=== PATIENT | female | born 1945 | race Caucasian/White ===

== ENCOUNTER 2016-06-14 22:08 | Emergency (ER) | payer OTHER ==
[2016-06-14 22:25] VITALS: TEMP 97.9
--- NOTE | 2016-06-14 22:27 | EDPHY ---
H & P HPI/ROS: HPI The patient presents with bilateral leg weakness which began about an hour prior to presentation, lasted for about 20 seconds and now is completely resolved. The patient was at a constitution party and had 5 alcoholic drinks tonight she then developed weakness in both of her legs with a sensation that they might give out on her. She stumbled and fell and her caught her. She did not hit her head. She has no prior history of similar. She denies any numbness or tingling of her legs. She denies any symptoms in her arms or any facial droop. She now denies any complaints though still feels somewhat intoxicated in usually does not drink this much. REVIEW OF SYSTEMS Constitutional: No fever, no chills. Eyes: No discharge. ENT: No sore throat. Cardiovascular: No chest pain, no palpitations. Respiratory: No cough, no shortness of breath. Gastrointestinal: No abdominal pain, no vomiting. Genitourinary: No hematuria. Musculoskeletal: No back pain. Skin: No rashes. Neurological: No headache. 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 PHYSICAL General Appearance: Alert, no distress Eyes: Pupils equal and round no pallor or injection ENT, Mouth: Mucous membranes moist Respiratory: There are no retractions, lungs are clear to auscultation Cardiovascular: Regular rate and rhythm Gastrointestinal: Abdomen is soft and non-tender, no masses, bowel sounds normal Neurological: A&O, cranial nerves 2-12 intact, 5/5 strength in upper and lower extremities which is symmetric, sensation intact to light touch Skin: Warm and dry, no rashes Musculoskeletal: Neck is supple non tender Extremities: symmetrical, full range of motion Psychiatric: Patient is oriented X 3, there is no agitation Source: Patient, EMS Constitutional: Initial Vital Signs Temperature (C) 36.6 C 06/14/16 22:23 Heart Rate 80 06/14/16 22:23 Respiratory Rate 14 06/14/16 22:23 Blood Pressure 179/78 H 06/14/16 22:23 O2 Sat (%) 94 06/14/16 22:23 O2 Delivery Mode Room Air Allergies/Adverse Reactions: Penicillins Allergy (Verified 06/14/16 22:22) Medical Decision Making - Diagnostics EKG Interpretation: EKG: Complete interpretation has been separately recorded in the [facility] archive. Summary impression: Normal sinus rhythm Imaging: CT brain is normal, discussed with Dr. Freitas of Radiology. ED Course/Re-evaluation: 10:15 p.m.- I met the paramedics at the bedside to obtain report. Her symptoms now have completely resolved. Plan for basic labs and CT scan of head. 11:30 p.m.- The patient has had no recurrence of her symptoms and feels well. Labs and CT scan are both unremarkable. I feel her symptoms were mostly related alcohol intoxication and I have explained this to her. I did tell her that she needs to return to the emergency room if she develops any recurrence of the symptoms. She is in agreement with this plan. Differential Diagnosis: This is a 71-year-old female with hyperlipidemia, hypothyroidism who presents with lower extremity weakness which was transient and now resolved, bilateral. She had no other symptoms with this. This is in the setting of heavy alcohol use. Differential diagnosis includes CVA, TIA, alcohol intoxication, electrolyte disturbance. - Data Points Laboratory Results: Laboratory Results 06/14/16 22:14 06/14/16 22:14 06/14/16 06/14/16 22:40 22:14 WBC 9.69 H 10^3/uL (3.80-9.50) RBC 5.16 10^6/uL (4.18-5.33) Hgb 15.6 g/dL (12.6-16.3) Hct 46.5 % (38.0-47.0) MCV 90.1 fL (81.5-99.8) MCH 30.2 pg (27.9-34.1) MCHC 33.5 g/dL (32.4-36.7) RDW 12.9 % (11.5-15.2) Plt Count 207 10^3/uL (150-400) MPV 11.7 fL (8.7-11.7) Neut % (Auto) 48.7 % (39.3-74.2) Lymph % (Auto) 35.4 % (15.0-45.0) [place] % (Auto) 10.9 % (4.5-13.0) Eos % (Auto) 3.4 % (0.6-7.6) Baso % (Auto) 1.1 % (0.3-1.7) Nucleat RBC Rel Count 0.0 % (0.0-0.2) Absolute Neuts (auto) 4.71 10^3/uL (1.70-6.50) Absolute Lymphs (auto) 3.43 H 10^3/uL (1.00-3.00) Absolute Monos (auto) 1.06 H 10^3/uL (0.30-0.80) Absolute Eos (auto) 0.33 10^3/uL (0.03-0.40) Absolute Basos (auto) 0.11 H 10^3/uL (0.02-0.10) Absolute Nucleated RBC 0.00 10^3/uL (0-0.01) Immature Gran % 0.5 % (0.0-1.1) Immature Gran # 0.05 10^3/uL (0.00-0.10) Sodium 145 H mEq/L (134-144) Potassium 3.7 mEq/L (3.5-5.2) Chloride 108 mEq/L (97-110) Carbon Dioxide 22 mEq/l (22-31) Anion Gap 15 mEq/L (8-16) BUN 17 mg/dL (7-23) Creatinine 0.8 mg/dL (0.6-1.0) Estimated GFR > 60 Glucose 101 H mg/dL (70-100) Calcium 9.4 mg/dL (8.5-10.4) Urine Color PALE YELLOW Urine Appearance CLEAR Urine pH 5.0 (5.0-7.5) Ur Specific [place] 1.003 (1.002-1.030) Urine Protein NEGATIVE (NEGATIVE) Urine Ketones NEGATIVE (NEGATIVE) Urine Blood NEGATIVE (NEGATIVE) Urine Nitrate NEGATIVE (NEGATIVE) Urine Bilirubin NEGATIVE (NEGATIVE) Urine Urobilinogen NEGATIVE EU (0.2-1.0) Ur Leukocyte Esterase NEGATIVE (NEGATIVE) Ur Culture Indicated? NOT INDICATED (NI) Urine Glucose NEGATIVE (NEGATIVE) Departure - Departure Disposition: Home, Routine, Self-Care Clinical Impression: Leg weakness, bilateral Condition: Good Instructions: Weakness (ED) Additional Instructions: Please return to the emergency room if your worse in any way otherwise, you can follow up with your regular doctor in the next few days. Referrals: [place],. [Primary Care Provider] - As per Instructions
--- NOTE | 2016-06-14 22:30 | CPEKG ---
Heart Rate: 65 RR Interval: 923 P-R Interval: 168 QRSD Interval: 90 QT Interval: 408 QTC Interval: 425 P Eden: 29 QRS Eden: 32 T Wave Eden: 83 EKG Severity - NORMAL ECG - EKG Impression: SINUS RHYTHM Electronically Signed By: Cheyenne Robbins 15-Jun-2016 06:43:53
[2016-06-14 22:31] LABS: % IMMATURE GRANULYOCYTES 0.5 % (0.0-1.1); ABSOLUTE IMMATURE GRANULOCYTES 0.05 10^3/uL (0.00-0.10); ADD DIFF? NO; ADD MORPH? NO; ADD SCAN? NO; ATYPICAL LYMPHOCYTE FLAG 10 (0-99); FRAGMENT RBC FLAG 0 (0-99); HEMATOCRIT 46.5 % (38.0-47.0); HEMOGLOBIN 15.6 g/dL (12.6-16.3); LEFT SHIFT FLG 0 (0-99); LIPEMIA HEMOLYSIS FLAG 80 (0-99); MEAN CELL HEMOGLOBIN 30.2 pg (27.9-34.1); MEAN CELL HEMOGLOBIN CONCENTR. 33.5 g/dL (32.4-36.7); MEAN CELL VOLUME 90.1 fL (81.5-99.8); MEAN PLATELET VOLUME 11.7 fL (8.7-11.7); PLATELET CLUMPS FLAG 10 (0-99); PLATELET COUNT 207 10^3/uL (150-400); RED BLOOD CELL COUNT 5.16 10^6/uL (4.18-5.33); RED CELL DISTRIBUTION WIDTH 12.9 % (11.5-15.2)
[2016-06-14 22:47] LABS: COLOR PALE YELLOW; LEUKOCYTE ESTERASE,URINE NEGATIVE (NEGATIVE); NITRITE,URINE NEGATIVE (NEGATIVE)
[2016-06-14 22:52] LABS: ANION GAP 15 mEq/L (8-16); CALCIUM 9.4 mg/dL (8.5-10.4); CARBON DIOXIDE 22 mEq/l (22-31); CHLORIDE 108 mEq/L (97-110); CREATININE 0.8 mg/dL (0.6-1.0); GLOMERULAR FILTRATION RATE > 60; GLUCOSE 101 mg/dL (70-100); POTASSIUM 3.7 mEq/L (3.5-5.2); SODIUM 145 mEq/L (134-144)
--- NOTE | 2016-06-14 23:02 | CT ---
Noncontrast Head CT Indication: Trauma. Weakness.. Technique: Standard noncontrast axial CT images of the head were performed. Dose reduction techniq ues were utilized. Findings: No evidence of intracranial hemorrhage, mass or mass effect, or extra-axial fluid. Underl blake cerebral and cerebellar atrophy is moderate. Reconstructed bone windows are negative for fracture. The paranasal sinuses are clear. Impression: Negative noncontrast CT of the brain. Results called to Dr. Shobha Robbins at the time of the interpretation.
[2016-06-14 23:41] VITALS: BP 142/74; PULSE 68; RESP 16; O2SAT 96
== END 2016-06-14 23:41 | disposition home or self-care (01) ==
DX: M62.81 Muscle weakness (generalized) (principal)